=== PATIENT | male | born 1925 | race Caucasian/White ===

== ENCOUNTER → 2016-10-31 | Outpatient (CLI) | payer MEDICARE ==
[~2016-10-31] MED LIST: AGGRENOX ER 251 CER PO; ASPIR-LOW81 MG PO; ASPIRIN E.C. 8181 MG PO; ATIVAN 0.50.5 MG/TAB PO; ATIVAN 1MG T1 MG/TAB PO; CALCIUM CARBONATE; CARDIZEM CD 12120 MG PO; CARDIZEM CD120 MG PO; CARTIA XT120 MG PO; CELEXA 20MG20 MG/TAB PO; CELEXA40 MG PO; CENTRUM SILVER1 TA1 PO; CEPHALEXIN500 M1 PO; CITALOPRAM HYDR10 MG PO; DEPAKOTE 250MG250 MG PO; DIFLUCAN 100MG100 MG PO; EXELON13.3TDM; FLAGYL500 MG PO; GABAPENTIN300 M1 PO; GABAPENTIN600 MG PO; KLONOPIN 0.5MG0.5 MG PO; LAMICTAL 100MG100 MG; LAMICTAL 100MG100 MG PO; LEVAQUIN 5500 MG/TA1 PO; LEXAPRO; LEXAPRO 10MG10 MG PO; LOPRESSOR 225 MG/TAB PO; MULTIPLE VITAMI1 CAP PO; NEURONTIN300 MG/CAP PO; NEXIUM 40MG40 MG PO; NEXIUM40 MG PO; OMEPRAZOLE40 MG PO; PLAVIX 75MG TAB75 MG PO; PRILOSEC 20MG20 MG PO; PROTONIX40 MG PO; RAZADYNE8 MG PO; REMERON 15M15 MG/TA1; TUMS500 MG PO; TYLENOL 325MG325 MG PO; TYLENOL 500MG500 MG PO; ULTRAM 50MG TAB50 MG PO; ULTRAM50 MG PO; VITAMIN E800 I1 PO; ZOLOFT 25MG25 MG PO; ZYPREXA 5MG5 MG PO
== END ==
LOC: BHSO 10:57
DX: F33.41 Major depressive disorder, recurrent, in partial remission (principal)

== ENCOUNTER → 2017-02-01 | Outpatient (CLI) | payer MEDICARE | LOC: BHSO 13:56 | DX: F41.1 Generalized anxiety disorder (principal) ==